=== PATIENT | female | born 1935 | race Caucasian/White ===

== ENCOUNTER 2022-10-13 14:52 | Emergency (ER) | payer MEDICARE, OTHER ==
[~2022-10-13] VITALS: Ht 157.5 cm; Wt 54.4 kg
[2022-10-13] MEDS ORDERED: RISPERDAL1 MG/1 ML PO (15:33)
[2022-10-13] MEDS ORDERED: LORAZEPAM2 MG/1 M2 PO (15:34)
[2022-10-13] MEDS ORDERED: LEVOFLOXACIN500 MG PO (16:39)
== END 2022-10-13 18:00 | disposition home or self-care (01) ==
LOC: ED 14:52
DX: J18.9 Pneumonia, unspecified organism (principal); Z88.5 Allergy status to narcotic agent; Z88.2 Allergy status to sulfonamides; Z88.8 Allergy status to other drugs, medicaments and biological substances; Z79.899 Other long term (current) drug therapy
CPT/HCPCS: 36415; 51701; 70450; 71045; 80053; 81003; 83605; 83690; 84484; 85025; 99285-25; J0696; J7040

== ENCOUNTER 2022-10-22 14:50 | Emergency (ER) | payer MEDICARE, OTHER ==
[~2022-10-22] VITALS: Ht 157.5 cm; Wt 54.4 kg
[~2022-10-22 14:50] MED LIST: LEVOFLOXACIN500 MG PO; LORAZEPAM2 MG/1 M2 PO; RISPERDAL1 MG/1 ML PO
[2022-10-22] MEDS ORDERED: LORAZEPAM I2 MG/1 ML PO (15:39)
== END 2022-10-22 16:34 | disposition home or self-care (01) ==
LOC: ED 14:50
DX: F03.90 Unspecified dementia, unspecified severity, without behavioral disturbance, psychotic disturbance, mood disturbance, and anxiety (principal); F91.9 Conduct disorder, unspecified; Z88.2 Allergy status to sulfonamides; Z88.5 Allergy status to narcotic agent; Z88.8 Allergy status to other drugs, medicaments and biological substances
CPT/HCPCS: 36415; 51701; 71045; 80053; 81003; 85025; 99285-25; G0480; J7040